=== PATIENT | male | born 1965 | race Caucasian/White ===

== ENCOUNTER → 2023-12-27 | Outpatient (CLI) | payer BC ==
--- NOTE | 2024-01-01 17:41 | CT ---
EXAMINATION TYPE: CT sinus wo con CT DLP: 556.9 mGycm, Automated exposure control for dose reduction was used. DATE OF EXAM: 12/27/2023 8:51 AM COMPARISON: 03/22/2010. CLINICAL INDICATION:Male, 58 years old with history of J32.0 CHRONIC MAXILLARY SINUSITIS; , sinusitis TECHNIQUE: Multiple thin axial images were obtained through the paranasal sinuses without the use of IV contrast. Additional coronal and sagittal reformatted images were submitted for evaluation. Contrast used: none Oral contrast used: none FINDINGS: Both maxillary sinuses reveal lobulated mucosal thickening but this is greater on the right. There is some lobulated thickening near the ostiomeatal complex bilaterally with occlusion on the left and occlusion on the right. There is patchy mucosal thickening within the anterior and middle ethmoid sinuses bilaterally and als o within the left frontal sinus and frontoethmoid junction. Right frontal sinus is normally aerated. There is only slight mucosal thickening seen within the ante rior aspect of each sphenoid sinus. There is also limited mucosal thickening in posterior ethmoid air cells on each side. There is also lobulated thickening of the inferior turbinate on the left and middle turbinates. Sinon lance polyps could well be present. I did not see definite bone destruction, however. Polypoid lesions protrude posteriorly on the left from both the middle and the inferior turbinate. Included portions of the orbits appeared unremarkable. Included portions of the brain were within nor mal limits. CONCLUSION- PANSINUSITIS. Slight progression since the earlier exam FAIRLY STRONG SUSPICION OF SINONASAL POLYPS, EXTENSIVE MUCOSAL CHANGES AFFECTING THE PARANASAL SINUS ES,
== END | disposition home or self-care (01) ==
LOC: RADCTMAIN 08:06
PROVIDERS: ATTEND Otolaryngology
DX: J32.4 Chronic pansinusitis (principal); J34.89 Other specified disorders of nose and nasal sinuses; J32.0 Chronic maxillary sinusitis
CPT/HCPCS: 70486

== ENCOUNTER → 2024-05-16 | Outpatient (CLI) | payer OTHER ==
--- NOTE | 2024-06-18 08:28 | XR ---
Site ID [facility] Anselmo Chase ID [id number] Order # Procedure XR KNEE 1 OR 2 VW LEFT EXAMINATION TYPE: XR knee limited LT DATE OF EXAM: 05/16/2024 2:37 PM CLINICAL INDICATION: pain following kneeling @work COMPARISON: THIS EXAM WAS READ DURING PACS DOWNTIME, NO PRIORS AVAILABLE. TECHNIQUE: XR knee limited LT; examined in Frontal, lateral and oblique projections. FINDINGS:/IMPRESSION: Lucency through the metadiaphysis region of the tibia medially. Further evaluation with complete imag ing and/or CT recommended finding could represent nutrient foramina versus fracture in the appropriat e clinical setting.
== END | disposition home or self-care (01) ==
LOC: RADXRMAIN 12:45
PROVIDERS: ATTEND Emergency Medicine
DX: S83.92XA Sprain of unspecified site of left knee, initial encounter (principal)

== ENCOUNTER → 2024-05-17 | Outpatient (CLI) | payer OTHER ==
--- NOTE | 2024-06-11 11:38 | CT ---
Patient: Stella Song Ordering Physician: Unknown, Unknown ID: [id number] Phone, Pager: Flako ne: N/A Pager: N/A : 11/16/2001 Age/Gender: 22Y, F Primary Location: N/A Procedure: CT ankle RT wo con Study Date: 05/20/2024 12:42:00 PM EXAMINATION TYPE: CT lower leg RT wo con DATE OF EXAM: 05/20/2024 COMPARISON: No comparison available on downtime PACS. HISTORY: Right lateral and medial malleolar fractures CT DLP: 252 mGycm Automated exposure control for dose reduction was used. Contrast: None Technique: Axial images millimeter thick sections. Reconstructed images in the coronal and sagittal p lanes. Images are obtained through fiberglass splint. FINDINGS: There is a longitudinal fracture along the medial tibia from the metaphysis extending to the medial a rticular surface. No significant diastases. There is a nondisplaced transverse metaphyseal fracture within the fibula. Mild soft tissue swelling overlying this fracture. The ankle mortise appears intact. Alignment and positioning of the osseous structures appears intact. Mild soft tissue swelling is over the medial and lateral malleoli. IMPRESSION: 1. LONGITUDINAL FRACTURE MEDIAL METAPHYSEAL TIBIA EXTENDING TO THE MEDIAL ARTICULAR SURFACE. 2. SUBTLE NONDISPLACED TRANSVERSE FRACTURE DISTAL METAPHYSEAL FIBULA. 3. MILD SOFT TISSUE SWELLING AT THE FRACTURE SITES.
== END | disposition home or self-care (01) ==
LOC: RADCTMAIN 13:26
PROVIDERS: ATTEND Emergency Medicine
DX: S82.425A Nondisplaced transverse fracture of shaft of left fibula, initial encounter for closed fracture (principal); S83.92XA Sprain of unspecified site of left knee, initial encounter

== ENCOUNTER → 2024-06-17 | Outpatient (CLI) | payer BC ==
--- NOTE | 2024-06-19 22:16 | MR ---
EXAMINATION TYPE: MR knee LT wo con DATE OF EXAM: 06/17/2024 COMPARISON: CT left leg May 17, 2024 HISTORY: Left knee pain due to injury at work TECHNIQUE: Multiplanar, multisequence images of the knee is performed without IV contrast. FINDINGS: MEDIAL MENISCUS: Medial extrusion medial meniscus on coronal images. Marked irregular signal posterio r horn extends to inferior articular surface. LATERAL MENISCUS: Increased linear signal posterior horn of the central body. CRUCIATE LIGAMENTS: The anterior and posterior cruciate ligaments are intact and unremarkable. COLLATERAL LIGAMENTS: The medial collateral ligament and lateral collateral ligament complex are inta ct. Mild fluid signal surrounds medial collateral ligament. EXTENSOR MECHANISM: Visualized quadriceps and patellar tendons are intact. EFFUSION: No significant suprapatellar joint effusion. POPLITEAL CYST: No popliteal/smith cyst. TRICOMPARTMENT SPACES: Mild to moderate tricompartment joint space loss and spurring. CARTILAGE: Some cartilaginous loss medial tibiofemoral compartment. BONE MARROW SIGNAL: No focal abnormal marrow signal is appreciated. Suspected fractures on CT perform ed less well seen on MRI. OTHER: No additional significant abnormality is appreciated. IMPRESSION: 1. Full-thickness tear posterior horn medial meniscus. 2. At least intrasubstance tear posterior horn of lateral meniscus extending to the central body. 3. Mild MCL sprain injury. 4. Mild to moderate tricompartment degenerative changes are present as detailed above. 5. No significant joint effusion. No suspicious osseous edema. [facility], , 06/19/2024 10:13 PM
== END | disposition home or self-care (01) ==
LOC: RADMRIMAIN 06-13 20:15
PROVIDERS: ATTEND Orthopaedic Surgery
DX: Z53.9 Procedure and treatment not carried out, unspecified reason (principal)

== ENCOUNTER → 2024-06-25 | Outpatient (CLI) | payer BC ==
[2024-06-25 16:28] LABS: Basophils # (A) 0.05 X 10*3/uL (0.00-0.10); Basophils % (A) 0.4 %; Eosinophils # (A) 0.34 X 10*3/uL (0.04-0.35); Eosinophils % (A) 2.9 %; HCT 48.1 % (39.6-50.0); HGB 15.9 g/dL (13.0-17.0); Lymphocytes # (A) 1.76 X 10*3/uL (0.90-5.00); MCH 29.2 pg (27.0-32.0); MCHC 33.1 g/dL (32.0-37.0); MCV 88.3 FL (80.0-97.0); Mean Platelet Volume 11.4 FL (9.5-12.2); Monocytes # (A) 0.55 X 10*3/uL (0.20-1.00); Monocytes % (A) 4.7 %; NRBC Per 100 WBC 0 X 10*3/uL (0.00-0.01); Neutrophils # (A) 8.97 X 10*3/uL (1.80-7.70); Neutrophils % (A) 76.5 %; Platelet Count 248 X 10*3/uL (140-440); RBC 5.45 X 10*6/uL (4.40-5.60); RDW 13.4 % (11.5-14.5); WBC 11.73 X 10*3/uL (4.50-10.00)
[2024-06-25 16:42] LABS: Anion Gap 12.3 mmol/L (4.00-12.00); Carbon Dioxide 22.7 mmol/L (21.6-31.8); Potassium 3.9 mmol/L (3.5-5.5)
== END | disposition home or self-care (01) ==
LOC: LABPAT 08:51
PROVIDERS: ATTEND Orthopaedic Surgery
DX: Z01.818 Encounter for other preprocedural examination
CPT/HCPCS: 36415; 80051; 85025; 93005

== ENCOUNTER 2024-07-10 06:41 | Day surgery (SDC) | payer BC ==
--- NOTE | 2024-07-09 23:20 | HP ---
HISTORY AND PHYSICAL DATE OF SURGERY: 07/10/2024. HISTORY OF PRESENT ILLNESS: Anselmo Yañez is a 58-year-old gentleman seen with progressive left knee pain. We discussed options regarding treatment. He elected to proceed with left knee arthroscopy. Consent was obtained. PAST MEDICAL HISTORY: Noncontributory. PAST SURGICAL HISTORY: Knee arthroscopy, sinus surgery. DAILY MEDICATIONS: Ibuprofen. ALLERGIES: None. SOCIAL HISTORY: Denies tobacco use. PHYSICAL EVALUATION OF THE LEFT KNEE: Range of motion is 0 to 125 degrees. There is tenderness along the medial joint line with positive medial Kristy's. Ligaments are stable. Hip rotation is without pain. His distal neurovascular exam is intact. RADIOGRAPHS: Left knee radiographs revealed moderate medial osteoarthritis. MRI of the left knee revealed medial meniscal tear, possible lateral meniscal tear, mild osteoarthritis. IMPRESSION: Internal derangement of left knee with medial meniscal tear. PLAN: Left knee arthroscopy with partial medial meniscectomy and debridement. MMODL / IJN: [id number] /
[2024-07-10 07:51] LABS: Glucose,Whole Blood 107 mg/dL (70-110)
[2024-07-10] MEDS: IV FLUID CONTINUATION 1,000 ML IV ONE (07:55)
[2024-07-10] MEDS: ONDANSETRON 4 MG/2 ML VIAL IVP ONE (07:59)
[2024-07-10] MEDS: LACTATED RINGERS 1,000 ML IV SCH (07:59)
[2024-07-10] MEDS: DEXAMETHASONE SOD PHOSPHATE 4 MG/ML 1 ML VIAL IV ONE (07:59)
[2024-07-10] MEDS ORDERED: fentaNYL (PF) 50 MCG/ML 2 ML AMP ONE (08:26)
[2024-07-10] MEDS ORDERED: KETOROLAC 15 MG/ML 1 ML VIAL ONE (08:26)
[2024-07-10] MEDS ORDERED: MIDAZOLAM 2 MG/2 ML VIAL ONE (08:26)
[2024-07-10] MEDS ORDERED: LIDOCAINE 1% INJ 10MG/ML (20 ML MDV) ONE (08:26)
[2024-07-10] MEDS ORDERED: PROPOFOL 10 MG/ML 20 ML VIAL IV ONE (08:26)
[2024-07-10] MEDS: BUPIVACAINE (PF) 0.25% 30 ML VIAL INTRAARTIC ONE ×2 (08:40→08:50)
--- NOTE | 2024-07-10 09:25 | P.OP ---
Date of Procedure: 07/10/24 Preoperative Diagnosis: Internal derangement left knee Postoperative Diagnosis: 1. Tear medial and lateral meniscus left knee 2. Grade IV chondromalacia femoral sulcus left knee 3. Reactive synovitis medial, lateral and suprapatellar compartments left knee 4. Grade II/III chondromalacia medial femoral condyle left knee Procedure(s) Performed: 1. Arthroscopic partial medial and lateral meniscectomy left knee 2. Arthroscopic microfracture femoral sulcus left knee 3. Arthroscopic partial synovectomy medial, lateral and suprapatellar compartments left knee 4. Arthroscopic chondroplasty medial femoral condyle left knee Anesthesia: JOJOA, local Surgeon: Sherif Ariza Estimated Blood Loss (ml): 6 Pathology: none sent Condition: stable Disposition: PACU Indications for Procedure: 58-year-old gentleman seen with progressive left knee pain. After treatment options were discussed, he elected to proceed with left knee arthroscopy. Operative Findings: See description of procedure Description of Procedure: Patient was taken to the operative suite. Patient underwent a general anesthetic by the department of anesthesia. Patient was given preoperative antibiotics. The left lower extremity was placed in a well-padded arthroscopic leg reyes. The left leg was prepped and draped in the normal sterile orthopedic fashion. A lateral parapatellar and suprapatellar incision was made. Trochars were inserted. Arthroscopy was initiated. Suprapatellar pouch revealed diffuse thick reactive synovitis. The patellofemoral joint appeared to articulate congruently. There was grade II chondromalacia of the patella and grade III/IV chondromalacia of the femoral sulcus with osteochondral flap tears. The scope was guided into the medial gutter. No loose bodies or plica were identified. The scope was then guided into the medial compartment. A medial parapatellar incision was made. Trocar inserted followed by probe. There was a complex tear involving the posterior horn of the medial meniscus. There were g rade II/III chondromalacia changes of the medial femoral condyle with some osteochondral flap tears present. There was thick reactive synovitis anteriorly. I performed a partial medial meniscectomy getting down to stable meniscal tissue. I performed a chondroplasty of the medial femoral condyle getting down to stable osteochondral tissue. I performed a partial synovectomy decompressing the reactive synovitis. The residual meniscus was probed and was found to be stable. The residual osteochondral surface was stable. There was good decompression of the synovitis. Scope and probe were then guided into the intercondylar notch. Cruciates were identified, probed and found to be stable. The scope and probe were then guided into lateral compartment. There was a radial tear mid body lateral meniscus. There was no chondromalacia present. There was some thick reactive synovitis anteriorly. I performed a partial lateral meniscectomy getting down to stable meniscal tissue. I performed a partial synovectomy decompressing the reactive synovitis. The residual meniscus was stable. There was good decompression of the synovitis. The scope was in guided back into the suprapatellar compartment. I introduced a motorized shaver into the suprapatellar compartment. I debrided some piecemeal fragments of meniscus I encountered. I performed a chondroplasty of the femoral sulcus gett ing down to stable osteochondral tissue. I performed a partial synovectomy decompressing the reactive synovitis. I did note an area of exposed bone along the medial femoral sulcus measuring just over a centimeter. I introduced a microfracture awl and I performed a microfracture to the area of exposed bone femoral sulcus penetrating the bone with resultant bleeding at the microfracture site. The residual osteochondral surface was probed and was found to be stable. I again noted good decompression of the synovitis. I now took one more look around the entire knee, no residual debris. Instruments were now removed from the joint. The joint was infiltrated with .25% Marcaine. Steri-Strips were applied to the portal sites. Sterile dressings were applied. The patient was placed into a ANSON hose. No tourniquet was utilized. The patient was awakened, transferred to a bed and taken to recovery stable satisfactory condition.
[2024-07-10 09:31] VITALS: TEMP 97.4
[2024-07-10] MEDS: HYDROmorphone 0.5 MG/0.5 ML SYRINGE IVP PRN (09:41)
[2024-07-10 10:41] VITALS: RESP 18
[2024-07-10 10:57] VITALS: BP 124/85; PULSE 70
== END 2024-07-10 11:33 | disposition home or self-care (01) ==
LOC: OR 06:41
PROVIDERS: ATTEND Orthopaedic Surgery
DX: M23.91 Unspecified internal derangement of right knee

== ENCOUNTER 2024-07-24 10:36 | Day surgery (SDC) | payer BC, OTHER ==
[~2024-07-24 10:36] MED LIST: LACTATED RINGERS 1,000 ML IV SCH
[2024-07-24] MEDS: OXYMETAZOLINE 0.05% NASL SPRAY 1 SPRAY BOTTLE EA NOSTRIL PRN (10:55)
[2024-07-24] MEDS: IV FLUID CONTINUATION 1,000 ML IV ONE (11:12)
[2024-07-24] MEDS: FAMOTIDINE 20 MG/2 ML VIAL IV PRN (11:19)
[2024-07-24] MEDS: ONDANSETRON 4 MG/2 ML VIAL IVP ONE (11:19)
[2024-07-24] MEDS: DEXAMETHASONE SOD PHOSPHATE 4 MG/ML 1 ML VIAL IV ONE (11:20)
[2024-07-24] MEDS ORDERED: fentaNYL (PF) 50 MCG/ML 2 ML AMP ONE (11:55)
[2024-07-24] MEDS ORDERED: MIDAZOLAM 2 MG/2 ML VIAL ONE (11:55)
[2024-07-24] MEDS ORDERED: PROPOFOL 10 MG/ML 20 ML VIAL IV ONE (11:55)
[2024-07-24] MEDS ORDERED: SUCCINYLCHOLINE CHLORIDE 200 MG/10 ML VIAL IV ONE (11:55)
[2024-07-24] MEDS ORDERED: LIDOCAINE 1% INJ 10MG/ML (20 ML MDV) ONE (11:55)
[2024-07-24] MEDS: LIDOCAINE 1%-EPI 1:100,000 20 ML VIAL SUBMUCOSAL ONE (12:10)
[2024-07-24] MEDS: BACITRACIN ZINC 500 UNIT/GM OINT 28.4 GM TUBE TOPICAL ONE (12:14)
--- NOTE | 2024-07-24 13:13 | P.OP ---
Date of Procedure: 07/24/24 Preoperative Diagnosis: deviated nasal septum Inferior turbinate hypertrophy Chronic sinusitis Sinonasal polyposis Postoperative Diagnosis: same Procedure(s) Performed: Outfracture and submucous resection of the inferior turbinates Bilateral endoscopic sinus surgery including bilateral maxillary antrostomy with removal of tissue from exercise bile anterior and posterior ethmoidectomy, bilateral frontal sinusotomy with removal of tissue from sinuses and bilateral sphenoidotomy with exploration and removal of tissue all including polypectomies Anesthesia: WIL Surgeon: Jamel Sagastume Estimated Blood Loss (ml): 10 Pathology: other (sinus contents) Condition: stable Disposition: PACU Indications for Procedure: a 58-year-old white male who has previous history of sinonasal polyps and has had surgery previously with improvement but recurrent polyps of the noted. He has chronic nasal airway obstruction with CT evidence of chronic inflammation throughout the sinuses Operative Findings: a 58-year-old white male who has history of sinonasal polyps and has had remote history septoplasty and sinus surgery previously. Polyps have regrown and have been quite symptomatic. Operative findings minimal nasal septal spurs but not obstructive and therefore revision septoplasty. The inferior turbinates to have moderate hypertrophy. There were extensive large polyps even despite preoperative steroids throughout the middle meatus and within the maxillary sinus and in the residual ethmoid air cells as well as small polyps frontal and sphenoid sinuses. There were residual ethmoid air cells with only minimal previous ethmoidectomy noted. The middle turbinates were partially resected but no intact as landmarks. Description of Procedure: The patient was brought into the operative suite and placed in a supine position. The patient underwent induction of general anesthesia with oral endotracheal intubation without difficulty. The patient was prepped and draped in the usual aseptic fashion with the orbits in the operating field for monitoring to the case and the computed tomography scan was on the computer screen for review throughout the case. 1% lidocaine with 1 :100,000 epinephrine was infused submucosally into both sides of the the lateral nasal wall and anterior tips of the middle turbinates within the polyps themselves. While this was taking vasoconstrictive effect the inferior turbinates were infractured with Clawson elevator and partial submucous resection of the inferior turbinates was performed with a portion of the submucosal soft tissue and the inferior turbinate bone removed with Coblation d evice. The inferior turbinates were then outfractured with the Clawson elevator. Full 0 endoscopic examination is performed bilaterally.gross polyps were debrided initially which were quite large and emanating from the middle meatus and off of the middle turbinates bilaterallyproceeding on the left, the middle turbinate was medialized. The maxillary ostium was located with a ballpoint probe and an infundibulotomy was performed followed by uncinectomy. The maxillary antrostomy was enlarged at the expense of the anterior and posterior fontanelle taking care anteriorly not to injure the lacrimal bone. The maxillary sinus was evaluated with 30 and 70 endoscope .[Abnormal appearing tissue was removed from the maxillary sinus]. Anterior and posterior ethmoidectomy with polypectomy were then performed from anterior to posterior to the level of the skull base. The roof of the anterior ethmoid air cells were then cleaned from posterior to anterior using up-biting Blakesley forceps. the sinusotomy was then performed with 30 and 70 endoscopic examination and giraffe forceps. The frontal sinus was then explored with 30 endoscope.[Abnormal tissue was removed from the frontal sinus]. sphenoidotomy was performed under 0 endoscopic evaluation with straight suction and straight Blakesley forceps The sphenoid sinus was then explored with 0 endoscope.[Abnormal tissue was removed from the sphenoid sinus]. Attention was then turned to the right where the procedures were followed as they had been on the left including medialization middle turbinate infundibulotomy uncinectomy maxillary antrostomy revision and removal of tissue from maxillary sinus anterior and posterior ethmoidectomy frontal sinusotomy with expiration removal of tissue and sphenoidotomy with removal of tissue [Nasopore nasal dressing was placed in the middle meatus bilaterally under direct visualization]. The patient was suctioned in oral gastric fashion and was allowed to emerge from general anesthesia having tolerated procedure well and was extubated in the operating suite and transferred to the postoperative recovery area in satisfactory condition.
[2024-07-24 13:19] VITALS: TEMP 97
[2024-07-24] MEDS: HYDROmorphone 0.5 MG/0.5 ML SYRINGE IVP PRN (13:30)
[2024-07-24 14:17] VITALS: RESP 16
[2024-07-24 14:39] VITALS: BP 136/76; PULSE 75
== END 2024-07-24 14:41 | disposition home or self-care (01) ==
LOC: OR 10:36
PROVIDERS: ATTEND Otolaryngology
CPT/HCPCS: 88305